=== PATIENT | male | born 1925 | race Caucasian/White ===

== ENCOUNTER 2016-12-02 18:48 | Inpatient (IN) | payer MEDICARE, BC ==
[~2016-12-02] VITALS: Ht 177.8 cm; Wt 77.6 kg
--- NOTE | 2016-12-02 19:15 | NUR ---
To bed 9 an 89 yo male bibself as advised by pmd to come to er for abnormal cxr with left small pleural effusion. Patient is aaox3, no s/s of acute distress, breathing even and unlabored. Reporting of coughing, denies headache, denies nausea. Skin warm and dry. Gowned. Placed on family support specialist. Awaiting for er md reyes.
--- NOTE | 2016-12-02 19:50 | NUR ---
Dr Johnson at bedside.
--- NOTE | 2016-12-02 19:58 | NUR ---
started a saline lock on the left hand g20, blood drawn and sent to lab.
[2016-12-02 20:04] LABS: BASOPHILS % (AUTO) 0.5 % (0.0-2.0); EOSINOPHILS # (AUTO) 0.4 /CMM (0.0-0.7); EOSINOPHILS % (AUTO) 6.7 % (0.0-6.0); HEMATOCRIT 38 % (39-51); HEMOGLOBIN 12.6 g/dL (13.5-17.5); LYMPHOCYTES # (AUTO) 0.4 /CMM (0.8-4.8); LYMPHOCYTES % (AUTO) 6.4 % (20.0-44.0); MEAN CORPUSCULAR HEMOGLOBIN 31 PG (26.0-33.0); MEAN CORPUSCULAR HGB CONC 33 g/dl (31.0-36.0); MEAN CORPUSCULAR VOLUME 94 fL (80-96); MONOCYTES # (AUTO) 0.7 /CMM (0.1-1.30); MONOCYTES % (AUTO) 10.9 % (2.0-12.0); NEUTROPHILS # (AUTO) 4.8 /CMM (1.8-8.9); NEUTROPHILS % (AUTO) 75.5 % (43.0-81.0); PLATELET COUNT (AUTO) 171 /CMM (150-450); RED BLOOD CELL COUNT(AUTO) 4.01 MIL/uL (4.5-6.0); WHITE BLOOD COUNT (AUTO) 6.4 K/uL (4.3-11.0)
[2016-12-02 20:15] LABS: CALCIUM, SERUM 8.6 mg/dL (8.5-10.1); CARBON DIOXIDE 27 mmol/L (21-32); CHLORIDE 103 mmol/L (98-107); CREATININE 1.3 mg/dL (0.6-1.3); GLUCOSE 105 mg/dL (74-106); POTASSIUM 3.6 mmol/L (3.5-5.1); SODIUM SERUM 140 mmol/L (136-145); UREA NITROGEN, BLOOD 17 mg/dL (7-18)
[2016-12-02 20:17] LABS: INR 0.97 (0.87-1.13); PROTHROMBIN TIME 10.4 SECS (9.5-12.7)
[2016-12-02 20:20] LABS: ALANINE AMINOTRANSFERASE 14 U/L (12-78); ALBUMIN 2.9 g/dL (3.4-5.0); ALKALINE PHOSPHATASE 60 U/L (46-116); ASPARTATE AMINOTRANSFERASE 12 U/L (15-37); BILIRUBIN,DIRECT 0.1 mg/dL (0.0-0.2); BILIRUBIN,TOTAL 0.5 mg/dL (0.2-1.0); TOTAL PROTEIN, SERUM 6.5 g/dL (6.4-8.2)
[2016-12-02 20:23] LABS: TROPONIN I < 0.017 ng/mL (0.00-0.056)
[2016-12-02] MEDS ORDERED: FUROSEMIDE 20 MG/2 ML VIAL IV ONE (21:00)
[2016-12-02] MEDS ORDERED: LEVOFLOXACIN 750 MG /D5W 150ML 150 ML IV ONE ×2 (21:00→21:24)
--- NOTE | 2016-12-02 21:06 | NUR ---
DR MONTELONGO ON THE PHONE WITH MARIBEL STEVENS FUNDER TEST LEAD APPLICATION TESTING FOR DR. ALICE GOLDEN
[2016-12-02] MEDS ORDERED: MAGN400O6 PO (21:22)
[2016-12-02] MEDS ORDERED: NA P133E RC (21:22)
[2016-12-02] MEDS ORDERED: CHOL100030 PO (21:22)
[2016-12-02] MEDS ORDERED: NITR0.4T SL (21:22)
[2016-12-02] MEDS ORDERED: CLOP75TA2 PO (21:22)
[2016-12-02] MEDS ORDERED: OMEP20TA68 PO (21:22)
[2016-12-02] MEDS ORDERED: ATOR40TA PO (21:22)
[2016-12-02] MEDS ORDERED: ASPI-605 PO (21:22)
[2016-12-02] MEDS ORDERED: DUTA0.5C PO (21:22)
[2016-12-02] MEDS ORDERED: FLUD0.1T3 PO (21:22)
[2016-12-02] MEDS ORDERED: SENN8.6T6 PO (21:22)
[2016-12-02] MEDS ORDERED: DEXT15DR6 EACHEYE (21:22)
[2016-12-02] MEDS ORDERED: FUROSEMIDE 20 MG/2 ML VIAL ONE (21:23)
[2016-12-02] MEDS ORDERED: IV SET PRIMARY PUMP SET 1 EA INFUS.SET MC ONE (21:25)
--- NOTE | 2016-12-02 21:29 | NUR ---
report given to Sera SIBLEY for sinan.
[2016-12-02 21:50] VITALS: BP 181/88
--- NOTE | 2016-12-02 21:50 | NUR ---
CHICKEN HANDLER INITIAL NOTE PT RECEIVED FROM EMERGENCY ROOM VIA [employer]. A/O X2 AND ABLE TO MAKE NEEDS KNOWN. ON 4L OF O2 VIA NASAL CANNULA, TOLERATING AND SATING WELL. IV SITE LEFT HAND #20G CLEAN, DRY, INTACT AND FLUSHING WELL. BODY CHECK DONE. LUNGS AND HEART SOUNDS AUSCULTATED. VITAL SIGNS DONE. ALL SAFETY MEASURES IN PLACE. CALL LIGHT WITHIN REACH AT ALL TIMES. BED IN LOWEST POSITION AND LOCKED WITH BED ALARM ON. WILL CONTINUE TO MONITOR. Addendum: 12/03/16 at 0317 by JASPAL CONDON RN ON TELE- SINUS RHYTHM 60.
--- NOTE | 2016-12-02 21:54 | NUR ---
transported patient to tele bed 112-2 under [facility] protocol, jay swanson at bedside for sinan. no incident noted.
--- NOTE | 2016-12-02 22:45 | NUR ---
GRAVEL TRUCK DRIVER NOTE SPOKE WITH WASHER AND CRUSHER TENDER RODNEY LÓPEZ USER EXPERIENCE ANALYST WITH NEW ORDERS TO START CARDIAC DIET, INSERT KINCAID CATHETER, LASIX 40MG PO Q DAILY, POTASSIUM 10MEQ PO Q DAILY, CLONIDINE 0.1MG PO Q4H PRN FOR SBP>160. ORDERS READ BACK ORDERED. ALL ORDERS NOTED AND CARRIED OUT. WILL CONTINUE TO MONITOR. Addendum: 12/03/16 at 0404 by JASPAL CONDON RN LASIX 40 MG IVP Q DAILY INSTEAD OF PO.
[2016-12-02] MEDS ORDERED: CLONIDINE HCL 0.1 MG TABLET ONE (22:59)
[2016-12-02] MEDS: CLONIDINE HCL 0.1 MG TABLET PO PRN (23:13)
[2016-12-03] VITALS: BP_SYST 139; BP_SYST 172; BP_DIAS 64; BP_DIAS 69; BP_DIAS 82
[2016-12-03 04:00] VITALS: BP 126/63
--- NOTE | 2016-12-03 06:30 | NUR ---
RETAIL KEY HOLDER CLOSING NOTE PT REMAINED STABLE DURING SHIFT. NO ACUTE DISTRESS NOTED. ON 4L OF O2 AND SATING WELL. KINCAID CATHETER IN PLACE AND DRAINING BY GRAVITY. IV SITE INTACT. ALL SAFETY MEASURES IN PLACE. CALL LIGHT WITHIN REACH AT ALL TIMES. WILL ENDORSE TO NEXT SHIFT FOR MUNA.
[2016-12-03] MEDS ORDERED: CHOL100044 PO (07:57)
[2016-12-03] MEDS ORDERED: [UNRECOGNIZED DRUG - CODE] EACHEYE (07:57)
[2016-12-03 08:00] VITALS: BP 148/110
--- NOTE | 2016-12-03 08:00 | NUR ---
PIN INSERTER REGULATOR NOTE PATIENT IN BED , ALL NEEDS ATTENDED , HAVING BREAKFAST, ABLE TO EAT SELF ,BED IN LOWEST AND LOCKED POSITION , CALL LIGHT WITHIN REACH , PLAN OF CARE DISCUSSED WITH PATIENT , ON 3L NC SAT 95% , WITH F\C TO GRAVITY WITH YELLOW COLOR URINE , HL ON LT HAND I TACT , WILL CONT TO MONITOR CLOSELY ,NO SOB
[2016-12-03] MEDS ORDERED: FUROSEMIDE 20 MG TABLET PO SCH (09:00)
--- NOTE | 2016-12-03 09:00 | NUR ---
SERVER ADMINISTRATOR NOTE TYLENOL GIVEN, COOLING MEASURE PROVIDED FOR T 100.4 ABG GONE EKG DONE , NO SIGNIFICANT CHANGES , SPOKE WITH DR LINDO ABOUT PATIENT CONDITION , STATED THAT WILL CHECK IT OUT AWARE OF CHEST X RAY RESULT Addendum: 12/03/16 at 1002 by ASHWIN BRASWELL RN PER RT AND ABG RESULT PLACED ON 6L SIMPLE MASK Addendum: 12/03/16 at 1003 by ASHWIN BRASWELL RN WRONG CHART ABOVE WRONG PATIENT
[2016-12-03] MEDS: POTASSIUM CHLORIDE 10 MEQ TABLET.SA PO SCH (09:16)
[2016-12-03] MEDS: FUROSEMIDE 40 MG/4 ML VIAL IV SCH ×4 (09:16→20:30)
--- NOTE | 2016-12-03 11:25 | NUR ---
REGISTERED RADIOGRAPHER NOTE SPOKE WITH DR WHALEN , SHE PIE CUTTER FOR DR GOLDEN NOTIFIED THAT HR 47-[address] LINARES WILL SEE PATIENT, PER DR MARLIN FORD OK TO ORDER ECHO AND VIT D LEVEL AND LIPIDS PANEL AND WE NEED OBTAIN RECORD FROM FACILITY , CASE MANGER NOTIFIED , MED RECON CHECKED BY DR BECK NO DVT PUMPS , OK ON PLAVIX FROM MED RECON
--- NOTE | 2016-12-03 11:44 | NUR ---
CONCRETE FENCE BUILDER NOTE DR LINARES AIR BAG BUILDER NOTIFIED THAT HR 47-50 STATED THAT WILL CHECK IT OUT
[2016-12-03 11:58] LABS: CHOLESTEROL 119 mg/dL (<200); HDL CHOLESTEROL 53 mg/dL (40-60); LDL 56 mg/dL (0-99); TRIGLYCERIDES 57 mg/dL (30-150)
[2016-12-03 11:59] LABS: EOSINOPHILS # (AUTO) 0.2 /CMM (0.0-0.7); EOSINOPHILS % (AUTO) 2.3 % (0.0-6.0); HEMATOCRIT 37 % (39-51); HEMOGLOBIN 12.5 g/dL (13.5-17.5); LYMPHOCYTES # (AUTO) 0.3 /CMM (0.8-4.8); LYMPHOCYTES % (AUTO) 3.7 % (20.0-44.0); MEAN CORPUSCULAR HEMOGLOBIN 31 PG (26.0-33.0); MEAN CORPUSCULAR HGB CONC 33 g/dl (31.0-36.0); MEAN CORPUSCULAR VOLUME 94 fL (80-96); MONOCYTES # (AUTO) 0.7 /CMM (0.1-1.30); MONOCYTES % (AUTO) 8.3 % (2.0-12.0); NEUTROPHILS # (AUTO) 6.7 /CMM (1.8-8.9); NEUTROPHILS % (AUTO) 85.7 % (43.0-81.0); PLATELET COUNT (AUTO) 169 /CMM (150-450); RDW COEFFICIENT OF VARIATION 15.3 (11.5-15.0); RED BLOOD CELL COUNT(AUTO) 3.97 MIL/uL (4.5-6.0); WHITE BLOOD COUNT (AUTO) 7.9 K/uL (4.3-11.0)
[2016-12-03 12:00] VITALS: BP 148/70
[2016-12-03 12:02] LABS: TROPONIN I 0.022 ng/mL (0.00-0.056)
[2016-12-03 12:09] LABS: THYROID STIMULATING HORMONE 4.915 uIU/mL (0.358-3.74)
[2016-12-03 12:10] LABS: CALCIUM, SERUM 8.4 mg/dL (8.5-10.1); CREATININE 1.4 mg/dL (0.6-1.3); POTASSIUM 3.6 mmol/L (3.5-5.1)
[2016-12-03 12:14] LABS: ALBUMIN 2.7 g/dL (3.4-5.0); BILIRUBIN,TOTAL 0.6 mg/dL (0.2-1.0); MAGNESIUM 1.7 mg/dL (1.8-2.4); PHOSPHORUS 3.9 mg/dL (2.5-4.9); TOTAL PROTEIN, SERUM 6.3 g/dL (6.4-8.2)
[2016-12-03] MEDS ORDERED: NITROGLYCERIN 0.4 MG/TAB BOTTLE SL PRN (13:30)
[2016-12-03] MEDS ORDERED: NA PHOS,M-B/NA PHOS,DI-BA 1 EA ENEMA RC PRN (13:30)
[2016-12-03] MEDS ORDERED: MAGNESIUM HYDROXIDE 30 ML UDC PO PRN (13:30)
[2016-12-03 13:57] LABS: ABG BASE EXCESS 7.7 mmol/L; ABG OXYGEN SATURATION 93.3 % (92.0-98.5); ABG PH 7.503 (7.350-7.450); ABG PO2 66.1 mmHg (75.0-100.0); ABG TOTAL HEMOGLOBIN 13.6 G/dL (13.5-18.0); AaDO2 77.9 mmHg; COHb 1.1 % (0.5-1.5); MetHb 0.7 % (0.0-1.5); O2Hb 91.6 % (94.0-97.0); SITE, ABG Right Radial; VENT MODE, BG 2L NC
--- NOTE | 2016-12-03 14:14 | NUR ---
TECHNOLOGY ARCHITECT NOTE CALLED [facility] ASSISTED CARE PAPER RECEIVED PAPER WORK ,PLACED ON CHART PER ORDER DR GÓMEZ
[2016-12-03] MEDS: CLOPIDOGREL BISULFATE 75 MG TABLET PO SCH (14:18)
[2016-12-03] MEDS: DUTASTERIDE (0.5 MG) 0.5 MG CAPSULE PO SCH (14:18)
[2016-12-03] MEDS: FLUDROCORTISONE 0.1 MG TABLET PO SCH (14:18)
[2016-12-03] MEDS: ASPIRIN EC 81 MG TABLET.DR PO SCH (14:21)
--- NOTE | 2016-12-03 15:44 | NUR ---
TAPPER OPERATOR NOTE ABG DONE ON 2L NC BECAUSE PATIENT BECOME DESATURATED , ABG REPORTED TO DR LINDO, NO NEW ODER GIVEN AT THIS TIME
[2016-12-03 16:00] VITALS: BP 132/75
[2016-12-03] MEDS: SODIUM CHLORIDE 5% SOLN OPHTH 15 ML BOTTLE EACHEYE SCH ×2 (16:00→20:37)
--- NOTE | 2016-12-03 18:00 | NUR ---
COMMERCIAL PILOT NOTE CALLED TO RADIOLOGY NOTIFIED THAT 2DECHO NOT DONE STATED WILL DONE TODAY
[2016-12-03] MEDS: ATORVASTATIN 40 MG TABLET PO SCH (18:31)
[2016-12-03] MEDS ORDERED: Magnesium 1GM/D5W 100ML PREMIX PIGGYBACK IV ONE (19:30)
--- NOTE | 2016-12-03 19:30 | NUR ---
PIPE FITTER FIRE SPRINKLER SYSTEMS NOTE SPOKE WITH DR REED NOTIFIED THAT MAG 1.7 WITH ORDER 1GM IVPB
--- NOTE | 2016-12-03 19:45 | NUR ---
GATEKEEPER: PT RECEIVED WT EYES CLOSED. ABLE TO WAKE UP WHEN CALLED BY NAME. A/O X 2-3. ON 3L 02 VIA NC WT NO ACUTE DISTRESS. NO C/O PAIN OR EVIDENCE OF DISCOMFORT. OCCASIONAL COUGHING NOTED WT NO PHLEGM AT THIS TIME. WILL ADMINISTER DUE MEDS ORDERED. HOB ON SEMI-MANN'S. SAFETY PRECAUTION NOTED.
[2016-12-03 20:00] VITALS: BP 132/70
[2016-12-03] MEDS ORDERED: IV SET PRIMARY PUMP SET 1 EA INFUS.SET MC ONE (20:21)
[2016-12-03] MEDS: LEVOFLOXACIN (500MG) 500 MG TABLET PO SCH (20:37)
[2016-12-03] MEDS: SENNOSIDES 8.6 MG TABLET PO SCH (22:00)
--- NOTE | 2016-12-03 23:55 | NUR ---
ELECTRIC INSTALLER: FOLLOWED UP RADIOLOGY AND SPOKE WT RANDALL RE LEFT & RIGHT DECUBITUS X RAY. HE SAID THEY ARE GOING TO DO IT IN AM BECAUSE THEY ARE BUSY. NO MUNA AT THIS TIME. F/C NOTED WT LARGE AMT. OF TEA COLORED URINE DRAINING TO GRAVITY S/P LASIX IV.
[2016-12-04] VITALS: BP 134/67
[2016-12-04 04:00] VITALS: BP 125/70
--- NOTE | 2016-12-04 06:25 | NUR ---
APPAREL SALES ASSOCIATE: REMAINED SB IN THE LOW 50s ON TELE MONITOR. STILL ON 3L 02 VIA NC WT NO ACUTE DISTRESS. NO C/O PAIN OR DISCOMFORT. OCCASIONAL NON-PRODUCTIVE COUGHING NOTED. HOB KEPT ELEVATED. F/C PATENT AND INTACT DRAINING LARGE AMT. OF TEA COLORED URINE. SAFETY PRECAUTION NOTED AT ALL TIMES.
[2016-12-04 06:54] LABS: BASOPHILS % (AUTO) 0.2 % (0.0-2.0); EOSINOPHILS # (AUTO) 0.3 /CMM (0.0-0.7); EOSINOPHILS % (AUTO) 2.9 % (0.0-6.0); HEMATOCRIT 38 % (39-51); HEMOGLOBIN 12.8 g/dL (13.5-17.5); LYMPHOCYTES # (AUTO) 0.4 /CMM (0.8-4.8); LYMPHOCYTES % (AUTO) 4.6 % (20.0-44.0); MEAN CORPUSCULAR HEMOGLOBIN 32 PG (26.0-33.0); MEAN CORPUSCULAR HGB CONC 33 g/dl (31.0-36.0); MEAN CORPUSCULAR VOLUME 94 fL (80-96); MONOCYTES # (AUTO) 0.7 /CMM (0.1-1.30); MONOCYTES % (AUTO) 8.3 % (2.0-12.0); NEUTROPHILS # (AUTO) 7.2 /CMM (1.8-8.9); PLATELET COUNT (AUTO) 186 /CMM (150-450); RDW COEFFICIENT OF VARIATION 15.3 (11.5-15.0); RED BLOOD CELL COUNT(AUTO) 4.06 MIL/uL (4.5-6.0); WHITE BLOOD COUNT (AUTO) 8.5 K/uL (4.3-11.0)
--- NOTE | 2016-12-04 07:05 | NUR ---
RN INTIAL NOTE RECEIVED PT FROM PM NURSE A/OX3 PT ABLE TO COMMUNICATE. NC @3 L/MIN SPO2 @95%. NO C/O OF PAIN 0/10. F/C INTACT URINE FEMI IN COLOR . IV L HAND 20 G FLUSHED AND PATENT. REPOSITIONED FOR COMFORT AND SAFETY. PT KEPT WARM AND DRY. WILL CONTINUE TO MONITOR CLOSELY.
[2016-12-04 07:18] LABS: ALBUMIN 2.7 g/dL (3.4-5.0); BILIRUBIN,TOTAL 0.5 mg/dL (0.2-1.0); CALCIUM, SERUM 8.1 mg/dL (8.5-10.1); CREATININE 1.6 mg/dL (0.6-1.3); MAGNESIUM 1.9 mg/dL (1.8-2.4); PHOSPHORUS 4.4 mg/dL (2.5-4.9); POTASSIUM 3.1 mmol/L (3.5-5.1); TOTAL PROTEIN, SERUM 6.4 g/dL (6.4-8.2)
[2016-12-04 07:33] LABS: TROPONIN I 0.022 ng/mL (0.00-0.056)
[2016-12-04 08:00] VITALS: BP 139/61
[2016-12-04] MEDS: POLYVINYL ALCOHOL 15 ML BOTTLE EACHEYE PRN (08:09)
[2016-12-04] MEDS: ASPIRIN EC 81 MG TABLET.DR PO SCH (08:10)
[2016-12-04] MEDS: CHOLECALCIFEROL 1,000 UNIT TABLET (VIT D3) PO SCH (08:10)
[2016-12-04] MEDS: FLUDROCORTISONE 0.1 MG TABLET PO SCH (08:10)
[2016-12-04] MEDS: PANTOPRAZOLE 40 MG TABLET.DR PO SCH (08:10)
[2016-12-04] MEDS: DUTASTERIDE (0.5 MG) 0.5 MG CAPSULE PO SCH (08:10)
[2016-12-04] MEDS: POTASSIUM CHLORIDE 10 MEQ TABLET.SA PO SCH (08:11)
[2016-12-04] MEDS: FUROSEMIDE 40 MG/4 ML VIAL IV SCH (08:11)
[2016-12-04] MEDS: CLOPIDOGREL BISULFATE 75 MG TABLET PO SCH (08:11)
[2016-12-04] MEDS: SODIUM CHLORIDE 5% SOLN OPHTH 15 ML BOTTLE EACHEYE SCH ×4 (08:12→21:40)
[2016-12-04] MEDS ORDERED: Medication Not On Formulary EA (Omeprazole 20 MG) PO SCH (09:00)
--- NOTE | 2016-12-04 10:08 | NUR ---
RN NOTE PT REMOVED OFF TELE MONITOR.
[2016-12-04] MEDS: POTASSIUM CHLORIDE 20 MEQ TAB.PRT.SR PO SCH ×3 (10:12→12:49)
[2016-12-04 16:00] VITALS: BP 138/77
[2016-12-04] MEDS: ATORVASTATIN 40 MG TABLET PO SCH (17:39)
--- NOTE | 2016-12-04 19:08 | NUR ---
RN CLOSING NOTE PT A/OX3 PT ABLE TO COMMUNICATE. NC @3 L/MIN SPO2 @94%. NO C/O OF PAIN 0/10. F/C INTACT URINE FEMI IN COLOR . IV L HAND 20 G FLUSHED AND PATENT. REPOSITIONED FOR COMFORT AND SAFETY. PT KEPT WARM AND DRY. PT V/S STABLE THROUGH OUT SHIFT. ALL MEDICATIONS GIVEN ALL MD ORDERS CARRIED OUT. REPORT GIVEN TO PM NURSE FOR MUNA.
[2016-12-04 20:00] VITALS: BP 127/64
[2016-12-04] MEDS: ALBUTEROL HALF STRENGTH 1.25 MG/3 ML VIAL.NEB NEB SCH (20:05)
[2016-12-04] MEDS: LEVOFLOXACIN (500MG) 500 MG TABLET PO SCH (21:39)
[2016-12-04] MEDS: SENNOSIDES 8.6 MG TABLET PO SCH (21:40)
[2016-12-05] MEDS: ALBUTEROL HALF STRENGTH 1.25 MG/3 ML VIAL.NEB NEB SCH ×4 (00:38→19:27)
[2016-12-05 04:00] VITALS: BP 159/63
--- NOTE | 2016-12-05 07:20 | NUR ---
INITIAL NOTE PATIENT RESTING IN BED A+O X3, BREATHING AND LOC WNL. DENIES PAIN, DENIES SOB. ASSESSED NEEDS, PATIENT CONTENT, SPEECH SLOW. 3L O2 VIA NC. L HAND IV PATENT, NO COMPLICATIONS @ SITE. SKIN WARM AND DRY. KINCAID CATH PATENT WITH CLEAR YELLOW URINE. DISCUSSED PLAN OF CARE, PATIENT VERBALIZED UNDERSTANDING. CALL LIGHT IN REACH.
[2016-12-05 07:44] LABS: ALBUMIN 2.6 g/dL (3.4-5.0); BILIRUBIN,TOTAL 0.4 mg/dL (0.2-1.0); CALCIUM, SERUM 8.6 mg/dL (8.5-10.1); CREATININE 1.5 mg/dL (0.6-1.3); MAGNESIUM 1.9 mg/dL (1.8-2.4); POTASSIUM 3.6 mmol/L (3.5-5.1); TOTAL PROTEIN, SERUM 6.4 g/dL (6.4-8.2)
[2016-12-05 08:00] VITALS: BP_SYST 129; BP_DIAS 62; BP_DIAS 63
[2016-12-05] MEDS: CLOPIDOGREL BISULFATE 75 MG TABLET PO SCH (08:06)
[2016-12-05] MEDS: CHOLECALCIFEROL 1,000 UNIT TABLET (VIT D3) PO SCH (08:06)
[2016-12-05] MEDS: PANTOPRAZOLE 40 MG TABLET.DR PO SCH (08:06)
[2016-12-05] MEDS: FUROSEMIDE 40 MG/4 ML VIAL IV SCH (08:06)
[2016-12-05] MEDS: ASPIRIN EC 81 MG TABLET.DR PO SCH (08:06)
[2016-12-05] MEDS: DUTASTERIDE (0.5 MG) 0.5 MG CAPSULE PO SCH (08:06)
[2016-12-05] MEDS: POTASSIUM CHLORIDE 10 MEQ TABLET.SA PO SCH (08:06)
[2016-12-05] MEDS: FLUDROCORTISONE 0.1 MG TABLET PO SCH (08:06)
[2016-12-05] MEDS: SODIUM CHLORIDE 5% SOLN OPHTH 15 ML BOTTLE EACHEYE SCH ×4 (08:07→21:28)
[2016-12-05] MEDS: POLYVINYL ALCOHOL 15 ML BOTTLE EACHEYE PRN (08:07)
--- NOTE | 2016-12-05 12:41 | NUR ---
MEDICAL RECORDS FROM [facility] IN PATIENT'S CHART.
[2016-12-05 16:00] VITALS: BP 123/71
[2016-12-05] MEDS: ATORVASTATIN 40 MG TABLET PO SCH (16:44)
--- NOTE | 2016-12-05 19:21 | NUR ---
closing notes endorsed to night nurse for continuity of care. patient breathing and LOC wnl. no acute changes. on 1L oxygen via NC, tolerating well >92% as ordered. ADL care, and repositioning q2h observed. no new skin breakdown. call light in reach
[2016-12-05 20:00] VITALS: BP 104/64
[2016-12-05] MEDS: LEVOFLOXACIN (500MG) 500 MG TABLET PO SCH (21:27)
[2016-12-05] MEDS: SENNOSIDES 8.6 MG TABLET PO SCH (21:28)
[2016-12-06] MEDS: ALBUTEROL HALF STRENGTH 1.25 MG/3 ML VIAL.NEB NEB SCH ×4 (01:40→20:00)
[2016-12-06 04:09] VITALS: BP 173/99
[2016-12-06] MEDS: CLONIDINE HCL 0.1 MG TABLET PO PRN (04:13)
[2016-12-06 07:14] LABS: BASOPHILS % (AUTO) 0.3 % (0.0-2.0); EOSINOPHILS # (AUTO) 0.3 /CMM (0.0-0.7); HEMATOCRIT 39 % (39-51); HEMOGLOBIN 13.2 g/dL (13.5-17.5); LYMPHOCYTES # (AUTO) 0.4 /CMM (0.8-4.8); LYMPHOCYTES % (AUTO) 4.1 % (20.0-44.0); MEAN CORPUSCULAR HEMOGLOBIN 32 PG (26.0-33.0); MEAN CORPUSCULAR HGB CONC 34 g/dl (31.0-36.0); MEAN CORPUSCULAR VOLUME 94 fL (80-96); MONOCYTES # (AUTO) 0.5 /CMM (0.1-1.30); MONOCYTES % (AUTO) 5.9 % (2.0-12.0); NEUTROPHILS # (AUTO) 7.9 /CMM (1.8-8.9); NEUTROPHILS % (AUTO) 86.7 % (43.0-81.0); PLATELET COUNT (AUTO) 217 /CMM (150-450); RDW COEFFICIENT OF VARIATION 15.2 (11.5-15.0); RED BLOOD CELL COUNT(AUTO) 4.16 MIL/uL (4.5-6.0); WHITE BLOOD COUNT (AUTO) 9.1 K/uL (4.3-11.0)
--- NOTE | 2016-12-06 07:15 | NUR ---
RN INTIAL NOTE PT RECEIVED FROM PM NURSE A/O X3 PT ABLE TO VERBALIZE NEEDS AND WANTS. NO C/O OF PAIN 0/10. PT ON NC 2L .NO C/O OF ACUTE SOB. L HAND #20 G HL FLUSHED, INTACT AND PATENT. CALL LIGHT WITH IN REACH AND ALL SAFETY MEASURES IN PLACE. PT KEPT WARM AND DRY. WILL CONTINUE TO MONITOR CLOSELY.
[2016-12-06 07:47] LABS: ALBUMIN 2.7 g/dL (3.4-5.0); BILIRUBIN,TOTAL 0.4 mg/dL (0.2-1.0); CALCIUM, SERUM 8.5 mg/dL (8.5-10.1); CREATININE 1.6 mg/dL (0.6-1.3); PHOSPHORUS 3.9 mg/dL (2.5-4.9); POTASSIUM 3.6 mmol/L (3.5-5.1); TOTAL PROTEIN, SERUM 6.4 g/dL (6.4-8.2)
[2016-12-06] MEDS: PANTOPRAZOLE 40 MG TABLET.DR PO SCH (07:56)
[2016-12-06 08:00] VITALS: BP 11/62
[2016-12-06] MEDS: CLOPIDOGREL BISULFATE 75 MG TABLET PO SCH (08:00)
[2016-12-06] MEDS: DUTASTERIDE (0.5 MG) 0.5 MG CAPSULE PO SCH (08:00)
[2016-12-06] MEDS: FLUDROCORTISONE 0.1 MG TABLET PO SCH (08:00)
[2016-12-06] MEDS: CHOLECALCIFEROL 1,000 UNIT TABLET (VIT D3) PO SCH (08:00)
[2016-12-06] MEDS: ASPIRIN EC 81 MG TABLET.DR PO SCH (08:00)
[2016-12-06] MEDS: POTASSIUM CHLORIDE 10 MEQ TABLET.SA PO SCH (08:00)
[2016-12-06] MEDS: POLYVINYL ALCOHOL 15 ML BOTTLE EACHEYE PRN (08:01)
[2016-12-06] MEDS: SODIUM CHLORIDE 5% SOLN OPHTH 15 ML BOTTLE EACHEYE SCH ×4 (08:01→21:24)
[2016-12-06 09:39] VITALS: BP 113/62
--- NOTE | 2016-12-06 10:24 | NUR ---
RN NOTE DR. LINARES ORDERED REMOVEL OF NC SPO2 93 % ON RA AND DC OF KINCAID CATHETER. WANTS PT TO BE AMBULATED.
[2016-12-06] MEDS ORDERED: POTASSIUM CHLORIDE 20 MEQ TAB.PRT.SR PO SCH (11:00)
[2016-12-06] MEDS ORDERED: SECONDARY IV SET 1 EA INFUS.SET MC ONE (12:11)
[2016-12-06 16:00] VITALS: BP 135/87
[2016-12-06] MEDS: ATORVASTATIN 40 MG TABLET PO SCH (17:10)
--- NOTE | 2016-12-06 19:20 | NUR ---
RN INITIAL NOTE RECEIVED PT IN NO ACUTE DISTRESS IN BED. PT IS A/O X 3 AND ABLE TO MAKE NEEDS KNOWN. PT IS ON RA AND TOLERATING WELL WITH O2 SAT @ 91%. PT NOT C/O ANY SOB, DIFFICULTY BREATHING OR PAIN AT THIS TIME. PT HAD F/C REMOVED DURING DAYSHIFT WITH POSITIVE URINE OUTPUT. PT HAS L HAND 20G THAT IS CLEAN DRY INTACT AND PATENT WITH SALINE FLUSH. BED IN LOW LOCK POSITION WITH RAILS UP X 2. CALL LIGHT WITHIN REACH AND ALL SAFETY MEASURES ENSURED AND CARRIED OUT. WILL CONTINUE TO MONITOR PT.
--- NOTE | 2016-12-06 19:21 | NUR ---
RN CLOSING NOTE PT A/O X3 PT RESTING COMFORTABLY IN BED. PT V/S STABLE THROUGHOUT SHIFT. PT ABLE TO TOLERATE RA SPO2 90%. NO C/O ACUTE SOB. NO C/O PAIN 0/10. PT ABLE TO VOID IN DIAPER WITH PUT PAIN OR DIFFICULTLY. NO BM PT REFUSED ENEMA AND SUPPOSITORY AT THESE TIME. IV L HAND #20G INTACT AND PATENT. ALL ORDERS AND MEDICATIONS CARRIED OUT. ALL SAFETY MEASURES IN PLACE. REPORT GIVEN TO PM NURSE FOR MUNA.
[2016-12-06 20:00] VITALS: BP 117/68
[2016-12-06] MEDS: SENNOSIDES 8.6 MG TABLET PO SCH (21:24)
[2016-12-06] MEDS: LEVOFLOXACIN (500MG) 500 MG TABLET PO SCH (21:24)
[2016-12-07] MEDS: ALBUTEROL HALF STRENGTH 1.25 MG/3 ML VIAL.NEB NEB SCH ×4 (01:25→19:16)
[2016-12-07 04:00] VITALS: BP 131/74
--- NOTE | 2016-12-07 06:13 | NUR ---
RN CLOSING NOTE PT REMAINS IN NO ACUTE DISTRESS IN BED. PT DID NOT HAVE ANY SIGNIFICANT CHANGE IN CONDITION DURING SHIFT. ALL NEEDS MET ALL ORDERS CARRIED OUT. PT PLACED ON O2 DUE TO OXYGEN SATURATION @ 89%. PT DID NOT C/O ANY SOB OR DIFFICULTY BREATHING. PT O2 SAT IS @ 95%. WILL ENDORSE CARE TO AM RN FOR CONTINUITY OF CARE.
--- NOTE | 2016-12-07 07:00 | NUR ---
RN NOTES RECEIVED PT ON BED,A/O X 3 AND ABLE TO MAKE NEEDS KNOWN. RESPIRATION EVEN AND UNLABORED, ON 2L O2 N/C , NO SOB NOTED, L HAND 20G IV SITE CLEAN DRY INTACT AND PATENT WITH SALINE FLUSH. BED IN LOW POSITION AND LOCKED , RAILS UP X 3 . CALL LIGHT WITHIN EASY REACH AND ALL SAFETY MEASURES ENSURED AND CARRIED OUT. WILL CONTINUE TO MONITOR PT CLOSELY AND NOTIFY MD FOR ANY SIGNIFICANT CHANGES
[2016-12-07 08:00] VITALS: BP 131/71
[2016-12-07] MEDS: ASPIRIN EC 81 MG TABLET.DR PO SCH (08:15)
[2016-12-07] MEDS: DUTASTERIDE (0.5 MG) 0.5 MG CAPSULE PO SCH (08:15)
[2016-12-07] MEDS: CHOLECALCIFEROL 1,000 UNIT TABLET (VIT D3) PO SCH (08:15)
[2016-12-07] MEDS: CLOPIDOGREL BISULFATE 75 MG TABLET PO SCH (08:15)
[2016-12-07] MEDS: PANTOPRAZOLE 40 MG TABLET.DR PO SCH (08:15)
[2016-12-07] MEDS: FLUDROCORTISONE 0.1 MG TABLET PO SCH (08:15)
[2016-12-07] MEDS: SODIUM CHLORIDE 5% SOLN OPHTH 15 ML BOTTLE EACHEYE SCH ×4 (08:17→21:17)
[2016-12-07 10:13] LABS: BASOPHILS # (AUTO) 0.3 /CMM (0.0-0.2); BASOPHILS % (AUTO) 3.6 % (0.0-2.0); EOSINOPHILS # (AUTO) 0.3 /CMM (0.0-0.7); EOSINOPHILS % (AUTO) 4.2 % (0.0-6.0); HEMATOCRIT 39 % (39-51); HEMOGLOBIN 12.9 g/dL (13.5-17.5); LYMPHOCYTES # (AUTO) 0.4 /CMM (0.8-4.8); MEAN CORPUSCULAR HEMOGLOBIN 31 PG (26.0-33.0); MEAN CORPUSCULAR HGB CONC 33 g/dl (31.0-36.0); MEAN CORPUSCULAR VOLUME 94 fL (80-96); MONOCYTES # (AUTO) 0.5 /CMM (0.1-1.30); MONOCYTES % (AUTO) 6.5 % (2.0-12.0); NEUTROPHILS # (AUTO) 6.1 /CMM (1.8-8.9); NEUTROPHILS % (AUTO) 80.7 % (43.0-81.0); PLATELET COUNT (AUTO) 264 /CMM (150-450); RDW COEFFICIENT OF VARIATION 14.8 (11.5-15.0); RED BLOOD CELL COUNT(AUTO) 4.14 MIL/uL (4.5-6.0); WHITE BLOOD COUNT (AUTO) 7.6 K/uL (4.3-11.0)
[2016-12-07 10:31] LABS: CALCIUM, SERUM 8.6 mg/dL (8.5-10.1); CREATININE 1.6 mg/dL (0.6-1.3); POTASSIUM 3.9 mmol/L (3.5-5.1)
[2016-12-07 10:32] LABS: ALBUMIN 2.6 g/dL (3.4-5.0); BILIRUBIN,TOTAL 0.3 mg/dL (0.2-1.0); MAGNESIUM 1.8 mg/dL (1.8-2.4); PHOSPHORUS 3.5 mg/dL (2.5-4.9); TOTAL PROTEIN, SERUM 6.3 g/dL (6.4-8.2)
--- NOTE | 2016-12-07 12:00 | NUR ---
RN NOTES PT AT REST , JULES ANY DISTRESS , CONTINUE TO MONITOR .
[2016-12-07 16:00] VITALS: BP 113/63
[2016-12-07] MEDS: ATORVASTATIN 40 MG TABLET PO SCH (17:16)
--- NOTE | 2016-12-07 18:23 | NUR ---
RN NOTES PT AT REST , RESPIRATION EVEN AND UNLABORED ,L HAND IV SITE CDI, MEIDCATED PER MD ORDER , NO SIGNIFICANT CHANGES NOTED ON THIS SHIFT.
--- NOTE | 2016-12-07 19:20 | NUR ---
RN INITIAL NOTE RECEIVED PT IN NO ACUTE DISTRESS IN BED. PT IS A/O X 3 AND ABLE TO MAKE NEEDS KNOWN. PT IS ON RA AND TOLERATING WELL WITH O2 SAT @ 91%. PT NOT C/O ANY SOB, DIFFICULTY BREATHING OR PAIN AT THIS TIME. PT HAS L HAND 20G THAT IS CLEAN DRY INTACT AND PATENT WITH SALINE FLUSH. BED IN LOW LOCK POSITION WITH RAILS UP X 2. CALL LIGHT WITHIN REACH AND ALL SAFETY MEASURES ENSURED AND CARRIED OUT. WILL CONTINUE TO MONITOR PT.
[2016-12-07 20:00] VITALS: BP 120/61
[2016-12-07] MEDS: SENNOSIDES 8.6 MG TABLET PO SCH (21:16)
[2016-12-07] MEDS: LEVOFLOXACIN (500MG) 500 MG TABLET PO SCH (21:16)
[2016-12-08] MEDS: ALBUTEROL HALF STRENGTH 1.25 MG/3 ML VIAL.NEB NEB SCH ×2 (01:19→08:41)
[2016-12-08 04:00] VITALS: BP 128/65
--- NOTE | 2016-12-08 04:30 | NUR ---
RN NOTE TRANSFERRED CARE TO MERLE SIBLEY FOR CONTINUITY OF CARE.
--- NOTE | 2016-12-08 04:30 | NUR ---
MS RN ASSUMED CARE FOR THE PT. REPORT RECEIVED FROM NURSE ESPINO. PT IN BED ASLEEP, EASILY AROUSABLE. NO DISTRESS OR DISCOMFORT NOTED. DENIES PAIN. HL INTACT AND PATENT. ALL NEEDS ATTENDED. SIDE RAILS UP X 3 AND CALL LIGHT WITHIN REACH. CONTINUE TO MONITOR HIM.
--- NOTE | 2016-12-08 06:58 | NUR ---
RN NOTE PT IN BED ASLEEP, AROUSABLE. NO DISTRESS OR DISCOMFORT NOTED. DENIES PAIN. SIDE RAILS UP X 2 AND CALL LIGHT WITHIN REACH. WILL ENDORSE TO DAY SHIFT NURSE FOR CONTINUE TO CARE.
--- NOTE | 2016-12-08 07:15 | NUR ---
RN MS INITIAL NOTES RECEIVED REPORT AND PT FROM PM NURSE, A&O X3 TAJIK SPEAKING, ON 2L NC SAT ABOVE 97%, LT HAND 20 G SL INTACT PATENT, ALL NEEDS MET, ALL SAFETY MEASURES INITIATED, SIDE RAILS X2, BED LOW AND LOCKED, CALL LIGHT WITHIN REACH, WILL CONTINUE TO MONITOR.
[2016-12-08 08:00] VITALS: BP 121/70
[2016-12-08] MEDS: CHOLECALCIFEROL 1,000 UNIT TABLET (VIT D3) PO SCH (08:54)
[2016-12-08] MEDS: ASPIRIN EC 81 MG TABLET.DR PO SCH (08:54)
[2016-12-08] MEDS: PANTOPRAZOLE 40 MG TABLET.DR PO SCH (08:54)
[2016-12-08] MEDS: DUTASTERIDE (0.5 MG) 0.5 MG CAPSULE PO SCH (08:55)
[2016-12-08] MEDS: CLOPIDOGREL BISULFATE 75 MG TABLET PO SCH (08:55)
[2016-12-08] MEDS: SODIUM CHLORIDE 5% SOLN OPHTH 15 ML BOTTLE EACHEYE SCH (08:55)
[2016-12-08] MEDS: FLUDROCORTISONE 0.1 MG TABLET PO SCH (08:55)
--- NOTE | 2016-12-08 12:44 | NUR ---
RN MS ENDING NOTES PT LEFT VIA AMBULANCE, PT STABLE, DC PAPERWORK FINISHED, EXIT CARE SIGNED AND COMPLETE, IV REMOVED NO INFILTRATION NOTED, ALL DUE MEDS GIVENM ALL NEEDS MET, NO WOUNDS PRESENT, PT CLEAN AND DRY, ALL BELONGINGS LIST SIGNED AND COMPLETE, REPORT GIVEN TO ARABELLA SIBLEY AT [facility].
== END 2016-12-08 12:45 | DRG 291 ==
LOC: ER 19:00 → TELE1 21:52 → MEDSG1 12-04 10:29 → UNDODISIN 12-08 12:36
PROVIDERS: ADMIT Internal Medicine; ATTEND Internal Medicine
DX: I13.0 Hypertensive heart and chronic kidney disease with heart failure and stage 1 through stage 4 chronic kidney disease, or unspecified chronic kidney disease (principal); J12.9 Viral pneumonia, unspecified; J96.91 Respiratory failure, unspecified with hypoxia; J98.11 Atelectasis; N17.9 Acute kidney failure, unspecified; I50.30 Unspecified diastolic (congestive) heart failure; D64.9 Anemia, unspecified; N18.9 Chronic kidney disease, unspecified; I25.10 Atherosclerotic heart disease of native coronary artery without angina pectoris; E55.9 Vitamin D deficiency, unspecified; I77.810 Thoracic aortic ectasia; I95.1 Orthostatic hypotension; J42 Unspecified chronic bronchitis; K21.9 Gastro-esophageal reflux disease without esophagitis; M47.814 Spondylosis without myelopathy or radiculopathy, thoracic region; N40.0 Benign prostatic hyperplasia without lower urinary tract symptoms; Z87.891 Personal history of nicotine dependence
CPT/HCPCS: 36415; 36600; 71010-TC; 71035-TC; 76604-TC; 80048-TC; 80053-TC; 80061-TC; 80076-TC; 82306; 83605-TC; 83735-TC; 83880; 84100-TC; 84443-TC; 84484-TC; 85025-TC; 85730-TC; 87040-TC; 87081-TC; 93307-TC; 93970-TC; 94799-TC; 97001-TC; 97116-TC; 97530-TC; A4606; J1940; J1956; J3475; Z7610